=== PATIENT | female | born 1980 | race Caucasian/White ===

== ENCOUNTER 2021-01-31 20:15 | Observation (INO) | payer MEDICAID ==
[2021-01-31 21:09] LABS: Urine Bacteria NONE SEEN /hpf (None Seen); Urine Blood Negative /uL (Negative); Urine Specific Gravity 1.024 (1.001-1.035); Urine WBC 5 /hpf (0 - 5)
[2021-01-31] MEDS ORDERED: TERBUTALINE SULFATE 1 MG/ML 1ML VIAL SC SCH (21:30)
[2021-01-31 22:08] LABS: Alcohol, Urine < 3.0 mg/dL (0-10); Amphetamine Screen, Urine NEGATIVE (NEGATIVE); Barbiturate Scree,Urine NEGATIVE (NEGATIVE); Benzodiazephine Screen, Urine NEGATIVE (NEGATIVE); Cannabinoid Screen, Urine NEGATIVE (NEGATIVE); Cocaine Screen, Urine NEGATIVE (NEGATIVE); Opiate Scree,Urine NEGATIVE (NEGATIVE); Phencyclidine Screen, Urine NEGATIVE (NEGATIVE)
== END 2021-01-31 22:37 | disposition home or self-care (01) ==
LOC: LDRP 20:15
PROVIDERS: ADMIT Obstetrics & Gynecology Obstetrics; ATTEND Obstetrics & Gynecology Obstetrics
DX: O62.9 Abnormality of forces of labor, unspecified (principal); O99.333 Smoking (tobacco) complicating pregnancy, third trimester; F17.210 Nicotine dependence, cigarettes, uncomplicated; Z3A.33 33 weeks gestation of pregnancy; Z87.440 Personal history of urinary (tract) infections
CPT/HCPCS: 59025; 80307; 81001; 81002; 94760; 96372; G0378; G0379; J3105

== ENCOUNTER 2021-02-02 23:17 | Emergency (ER) | payer MEDICAID ==
[~2021-02-02] VITALS: Ht 170.2 cm; Wt 97.1 kg
[2021-02-02 23:18] VITALS: BP 130/85
[2021-02-03] MEDS ORDERED: ACETAMINOPHEN 500 MG TAB PO ONE (00:15)
== END 2021-02-03 00:35 | disposition left against medical advice (07) ==
LOC: ER 23:17
DX: O26.893 Other specified pregnancy related conditions, third trimester (principal); Z53.31 Laparoscopic surgical procedure converted to open procedure; Z3A.33 33 weeks gestation of pregnancy